=== PATIENT | female | born 1965 | race Hispanic/Latino ===

== ENCOUNTER 2020-11-22 17:57 | Emergency (ER) | payer OTHER ==
[~2020-11-22] VITALS: Ht 162.6 cm; Wt 102.1 kg
[2020-11-22 18:27] VITALS: BP 167/71
[2020-11-22 20:05] VITALS: BP 154/87
[2020-11-22] MEDS ORDERED: ONDANSETRON ODT 4 MG TAB SL SCH (20:15)
[2020-11-22] MEDS ORDERED: ORPHENADRINE CITRATE 30 MG/ML ML IM SCH (20:15)
[2020-11-22] MEDS ORDERED: KETOROLAC TROMETHAMINE 60 MG/2 ML VIAL IM SCH (20:15)
[2020-11-22] MEDS ORDERED: CYCL10TA7 PO (21:13)
[2020-11-22] MEDS ORDERED: MELO7.5T12 PO (21:13)
== END 2020-11-22 21:58 | disposition home or self-care (01) ==
LOC: EDH 17:57
DX: S16.1XXA Strain of muscle, fascia and tendon at neck level, initial encounter (principal); M62.838 Other muscle spasm; M54.6 Pain in thoracic spine; R51.9 Headache, unspecified; I10 Essential (primary) hypertension; E78.5 Hyperlipidemia, unspecified; Z88.2 Allergy status to sulfonamides; Z79.899 Other long term (current) drug therapy; V49.49XA Driver injured in collision with other motor vehicles in traffic accident, initial encounter; Y93.89 Activity, other specified; Y92.488 Other paved roadways as the place of occurrence of the external cause; Y99.8 Other external cause status
CPT/HCPCS: 70450; 72125; 96372 ×2; 99285; J1885; J2360

== ENCOUNTER 2023-06-29 18:45 | Emergency (ER) | payer OTHER ==
[~2023-06-29] VITALS: Ht 165.1 cm; Wt 133.4 kg
[~2023-06-29 18:45] MED LIST: CYCL-309 PO; MELO7.5T12 PO
[2023-06-30 00:11] VITALS: BP 142/78; PULSE 68; RESP 18; O2SAT 98
== END 2023-06-30 00:17 | disposition home or self-care (01) ==
LOC: EDH 18:45
DX: S46.912A Strain of unspecified muscle, fascia and tendon at shoulder and upper arm level, left arm, initial encounter (principal); E78.00 Pure hypercholesterolemia, unspecified; I10 Essential (primary) hypertension; Z79.1 Long term (current) use of non-steroidal anti-inflammatories (NSAID); Z88.2 Allergy status to sulfonamides; V89.2XXA Person injured in unspecified motor-vehicle accident, traffic, initial encounter; Y93.89 Activity, other specified; Y92.89 Other specified places as the place of occurrence of the external cause; Y99.8 Other external cause status
CPT/HCPCS: 73030